=== PATIENT | male | born 1990 | race Caucasian/White ===

== ENCOUNTER 2016-09-05 13:37 | Emergency (ER) | payer OTHER ==
[2016-09-05 13:45] VITALS: BP 137/71
--- NOTE | 2016-09-05 14:19 | ERNOTE ---
Abdominal HPI - Narrative Date of Service: 09/05/16 - General Chief Complaint: Abdominal Pain Time Seen by Provider: 09/05/16 13:48 Source: patient, RN notes reviewed Exam Limitations: no limitations - Immun/Allergies/Home Medications Immunizatons: IMMUNIZATION HX Immunizations Up to Date Yes History of Influenza Vaccine No Hx Pneumococcal Vaccination No Allergies/Adverse Reactions: Allergies No Known Allergies Allergy (Verified 09/05/16 13:45) Home Medications: HOME MEDICATIONS NK [No Home Medication] 09/05/16 [Last Taken Unknown] - Pain Score Pain Score #1 Pain Score: 0 - History of Present Illness Narrative: 25 y/o male ambulatory to the ED for gastrointestinal bleeding that began this morning. He reports having bright red blood in his stool this morning. He is not having any other symptoms. He researched the bleeding on the internet and became concerned that he had an ulcer. Associated Symptoms: Absent: headache, back pain, chest pain, diarrhea-gross blood, fatigue, fever/chills, heartburn, nausea, vomiting, loss of appetite, shortness of breath, weakness Prior Abdominal Problems: Present: none Review of Systems - Review of Systems Constitutional: Present: See HPI EYE: Present: no symptoms reported ENT: Present: no symptoms reported Respiratory: Present: See HPI Cardiology: Absent: palpitations, syncope Gastrointestinal/Abdominal: Absent: constipation, abdominal pain, eating less, drinking less Musculoskeletal: Present: no symptoms reported Skin: Absent: lesions, lumps Neurological: Present: See HPI Endocrine: Present: no symptoms reported Hematologic/Lymphatic: Absent: easy bruising, easy bleeding Psych: Present: anxiety - Patient's Past Medical History Patient History - Medical: No pertinent hx Patient History - Cardiac/Respiratory: No pertinent hx Patient History - Cancer: No Hx of Cancer Patient History - Surgical Procedures: No surgical history Patient History - Other: None - Social History Living Situations: home Abuse History: No History of abuse Psych History: No pertinent hx Smoking Status: Current every day smoker Have you smoked in the past 12 months: Yes Alcohol Use: heavy Drug Use: none - Immunizations Immunizations Up to Date: Yes Hx Pneumococcal Vaccination: No History of Influenza Vaccine: No Physical Exam - Physical Exam General Appearance: Present: wd/wn, alert, no apparent distress Neck: Present: normal inspection, nontender, supple Respiratory: Present: no respiratory distress, normal breath sounds, no accessory muscle use, lungs clear Cardiovascular/Chest: Present: regular rate, rhythm, no murmur, normal peripheral pulses Gastrointestinal/Abdominal: Present: normal bowel sounds, nontender, nondistended, soft, no organomegaly Back Exam: Present: normal inspection, no CVA tenderness Extremity Exam: Present: normal inspection, normal range of motion, no edema Neurological Exam: Present: alert, oriented, normal mood/affect, no motor/ sensory deficits Skin Exam: Present: normal color, warm/dry ED Progress - Vital Signs Patient's Vital Signs:: I have reviewed the patient's vital signs. Vital Signs: Vital Signs 09/05/16 13:42 Temperature 37.6 C H Pulse Rate 86 Respiratory 12 Rate Blood Pressure 137/71 O2 Sat by Pulse 97 Oximetry - Progress/Reassessment Chief Complaint: Abdominal Pain Progress:: Pain free at discharge Plan - Plan Plan: Patient is not having any abdominal pain or any other concerning symptoms. Reassured that one episode of bright red blood in the stool is usually d/t hemorrhoids or anal fissures, and that work-up is not indicated at this point. Discussed indications for needing to return. Patient in agreement with plan. Departure - Departure Clinical Impression: Rectal bleed Disposition: Home self-care Condition: Good Instructions: Gastrointestinal Bleeding, [id number] Additional Instructions: Follow up with your doctor if symptoms worsen or persist Decrease your alcohol consumption
== END 2016-09-05 14:10 | disposition home or self-care (01) ==
LOC: ER 13:37
DX: K62.5 Hemorrhage of anus and rectum (principal); Z72.0 Tobacco use